=== PATIENT | male | born 1980 | race Caucasian/White ===

== ENCOUNTER 2019-02-22 13:06 | Observation (INO) ==
[2019-02-22] MEDS ORDERED: Ondansetron ODT 4 MG TAB.RAPDIS SL PRN (17:34)
[2019-02-22] MEDS ORDERED: Acetaminophen 325 MG TABLET PO PRN (17:34)
[2019-02-22] MEDS ORDERED: traMADol 50 MG TABLET PO PRN (17:34)
[2019-02-22] MEDS ORDERED: Naloxone 0.4 MG/ML INJ IVP PRN (17:34)
[2019-02-22] MEDS ORDERED: MOM Conc 10 ML UD.LIQ PO PRN (17:34)
[2019-02-22] MEDS ORDERED: Nitroglycerin 0.4 MG TAB.SUBL SL PRN (17:36)
--- NOTE | 2019-02-22 17:39 | Internal Med History&Physical ---
Date of Encounter: 02/22/19 Time of Encounter: 17:15 Internal Medicine - H&P: HPI Chief complaint: chest pain Admitted From: Hospital to Hospital Transfer Plans for Post Hospital Care: Home History of present illness: Mr. Del Angel is a 38 year old male with hx of HTN transferred from [facility] due to chest pain. Mr Del Angel has hx of HTN - recently had HCTZ added. He stated that this AM he was leaving for work and noted his BP was controlled but his heart rate was over 100 (104). He denied chest pain at that time. 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 He said he felt very sweaty and had chest heaviness. He felt very tired and weak and sat down. Symptoms did not resolve and he called EMS. He was transferred to [facility] ED. He was tachycardic on arrival - sinus tach on EKG. Labs and CTA were reportedly negative (not included in transfer packet). He was given one nitro with improvement in his symptoms. He has not had symptoms prior to this. Denies hx DM or CAD. Denies hx of HLD (though he is on lipitor). No recent illness - has been coughing daily but quit smoking 3 weeks ago. Admits family hx of CAD/MN in brother (5 MIs before age 50). Mother with DM. Past Med Surg Social Fam HX - Past Medical History Source: patient Medical history: GERD, hyperlipidemia, hypertension Psychiatric history: depression - Past Surgical History Additional surgical history: left knee scope - Social History Smoking Status: Former smoker Smokeless Tobacco Status: Yes (Hasn't used last few days) Alcohol use: none Drug use: none Occupational status: employed Current living situation: With Family Activity Level: Independent ambulation Recent Out of Country Travel Within the Last 8 Weeks: No Exposure or Possible Exposure to Illness During Travel: No - Family History Father Living Status: Age at : 63 Cause of : Pneumonia Hx Family Cardiac Disorders: Yes (2 "holes in heart") Hx Family Endocrine Disorder: No Mother Living Status: Age at : 53 Cause of : Complications from surgery Hx Family Cardiac Disorders: No Hx Family Endocrine Disorder: Yes (DM) Internal Medicine - H&P: Meds Ibuprofen [Motrin] 600 mg PO Q6HR PRN #30 tab 10/19/17 [Rx] Atorvastatin Calcium [Lipitor] 20 mg PO HS 02/22/19 [History] BuPROPion [Wellbutrin] 150 mg PO DAILY 02/22/19 [History] Buspirone HCl [Buspar] 7.5 mg PO BID 02/22/19 [History] Cyanocobalamin (Vitamin B-12) [Vitamin B-12] 1,000 mg PO DAILY 02/22/19 [History] Lisinopril [Zestril] 20 mg PO HS 02/22/19 [History] Montelukast [Singulair] 10 mg PO DAILY 02/22/19 [History] Omeprazole [PriLOSEC] 20 mg PO DAILY 02/22/19 [History] Ranitidine HCl [Acid Culinary Assistant] 150 mg PO HS 02/22/19 [History] hydroCHLOROthiazide [Hydrochlorothiazide] 12.5 mg PO DAILY 02/22/19 [History] Allergy/AdvReac Type Severity Reaction Status Date / Time Erythromycin Base AdvReac Numbness Verified 03/12/18 06:45 All Systems PM: A 10-system review of systems was performed and is negative for pertinent findings except as documented above in the HPI. - Constitutional Constitutional: excessive sweating, fatigue - EENT Eyes: no irritation, no seeing flashes Ears: no decreased hearing Nose, mouth and throat: no dry mouth, no sinus pain - Cardiovascular Cardiovascular ROS IM: chest pain, dyspnea, dyspnea on exertion (Quit smoking because he was more dyspneic at work.), no lightheadedness - Respiratory Respiratory: cough, dyspnea on exertion - Gastrointestinal Gastrointestinal: no abdominal pain, no melena, no vomiting - Genitourinary Genitourinary ROS male: no urinary hesitancy, no urinary urgency - Integumentary Integumentary IM: no erythema, no rash - Neurological Neurological ROS: no dizziness, no vertigo - Psychiatric Psychiatric: no suicidal ideation - Endocrine Endocrine IM: no excessive sweating - Hematologic/Lymphatic Hematologic/Lymphatic: no easy bleeding - Allergic/Immunologic Allergic/Immunologic: no throat swelling - Constitutional General appearance: Present: A&O X 3, answers questions appropriately Exam: See below - Head Head exam: Present: normocephalic - Eye Eye exam: Present: EOMI, conjuntiva pink - ENT ENT exam: Present: normal exam - Neck Neck exam general surgery: Present: normal inspection. Absent: thyromegaly - Respiratory Respiratory exam: Present: CTAB. Absent: rales, rhonchi, wheezes - Cardiovascular Cardiovascular exam: Present: RRR. Absent: tachycardia - GI/Abdominal GI/Abdominal exam: Present: soft. Absent: tenderness - Extremities Exam Extremities exam: Present: warm. Absent: tenderness - Neurological Exam Neurological exam: Present: alert, oriented X3 - Skin Skin exam: Present: dry, warm. Absent: rash - Assessment and Plan (1) Chest pain Current Visit: Yes Status: Suspected Assessment and plan: Mr Del Angel presented to ED with complaints of chest heaviness with dyspnea and diaphoresis. He was tachycardic as well. Work up in [place] reportedly with neg trop and neg CTA of chest. Place in observation, serial troponin, labs repeated here. NPO midnight - probable stress in AM. Qualifiers: Chest pain type: chest pain due to myocardial ischemia Ischemic chest pain type: unstable angina pectoris Qualified Code(s): I20.0 - Unstable angina (2) HTN (hypertension) Current Visit: Yes Status: Chronic Assessment and plan: Pt recently started on HCTZ in addition to Lisinopril. Continue both for now. May need beta ana laura. Qualifiers: Hypertension type: essential hypertension Qualified Code(s): I10 - Essential (primary) hypertension (3) HLD (hyperlipidemia) Current Visit: Yes Status: Suspected Assessment and plan: Pt denies hx of HLD but takes Lipitor. Check lab in AM. Qualifiers: Hyperlipidemia type: mixed hyperlipidemia Qualified Code(s): E78.2 - Mixed hyperlipidemia (4) Tobacco abuse Current Visit: Yes Status: Resolved Assessment and plan: Quit 3 weeks ago. - Time Spent With Patient Total time spent is greater than 50% in coordination of care (as documented) at patient's floor/unit and/or counseling patient:
[2019-02-22 18:38] LABS: Basophils # 0.1 K/mcL (0.0-0.2); Eosinophils # 0.2 K/mcL (0.0-0.6); Hematocrit 46.5 % (37.5-50.1); Hemoglobin 16.4 g/dL (12.9-16.9); Immature Granulocytes % 0.6 % (0-4); Lymphocytes # 2.3 K/mcL (0.6-4.6); Lymphocytes % 22.8 %; Mean Corpuscular HGB Conc 35.3 g/dL (31.6-35.5); Mean Corpuscular Hemoglobin 31.6 pg (28.0-33.3); Mean Corpuscular Volume 89.6 fL (83.0-100.0); Mean Platelet Volume 9.7 fL (9.4-12.4); Monocytes % 9.7 %; Neutrophils # 6.5 K/mcL (1.6-8.9); Platelet Count 290 K/mcL (140-400); Red Blood Count 5.19 M/mcL (4.19-5.50); Red Cell Distribution Width 12.2 % (11.5-14.5); Segmented Neutrophils % 63.9 %; White Blood Count 10.1 K/mcL (4.3-11.1)
[2019-02-22 19:01] LABS: Alanine Aminotransferase 27 Units/L (7-52); Albumin 4.2 g/dL (3.5-5.7); Albumin/Globulin Ratio 1.6 (1.1-2.2); Alkaline Phosphatase 131 Units/L (34-104); Aspartate Amino Transferase 16 Units/L (13-39); BUN/Creatinine Ratio 11 (6-26); Bilirubin,Total 0.6 mg/dL (0.3-1.0); Blood Urea Nitrogen 11 mg/dL (6-20); Calcium 9.5 mg/dL (8.6-10.3); Carbon Dioxide 26 mEq/L (23-29); Chloride 102 mEq/L (98-107); Globulin 2.7 g/dL (2.4-3.5); Glucose 125 mg/dL (70-105); Osmolality,Calculated 287 (280-300); Potassium 3.4 mEq/L (3.5-5.1); Sodium 138 mEq/L (136-145); Total Protein 6.9 g/dL (6.4-8.9); Troponin I < 0.03 ng/mL (< 0.04); eGFR For African Americans > 60 (> 60); eGFR For Non-African Americans > 60 (> 60)
[2019-02-22] MEDS: Lisinopril 20 MG TABLET PO SCH (20:03)
[2019-02-22] MEDS: Famotidine 20 MG TABLET PO SCH (20:04)
[2019-02-22] MEDS ORDERED: Perflutren Lipid Microsphere 1.3 ML in 0.9 % Sodium Chloride 8.7 ML IVP ONE (20:06)
[2019-02-23 06:15] LABS: Hematocrit 46.8 % (37.5-50.1); Hemoglobin 16.4 g/dL (12.9-16.9); Mean Corpuscular Volume 91.2 fL (83.0-100.0); Mean Platelet Volume 9.8 fL (9.4-12.4); Platelet Count 284 K/mcL (140-400); Red Blood Count 5.13 M/mcL (4.19-5.50); Red Cell Distribution Width 12.1 % (11.5-14.5); White Blood Count 9.1 K/mcL (4.3-11.1)
[2019-02-23 06:22] LABS: Prothrombin Time 11.5 Seconds (9.4-12.1)
[2019-02-23 06:32] LABS: BUN/Creatinine Ratio 15 (6-26); Blood Urea Nitrogen 14 mg/dL (6-20); Calcium 9.3 mg/dL (8.6-10.3); Carbon Dioxide 29 mEq/L (23-29); Chloride 100 mEq/L (98-107); Chol/HDL Ratio 5.1 (0-4.9); Cholesterol 122 mg/dL (< 200); Glucose 120 mg/dL (70-105); HDL Cholesterol 24 mg/dL (40-59); LDL Cholesterol,Calculated 79 mg/dL (0-99); Osmolality,Calculated 288 (280-300); Potassium 3.7 mEq/L (3.5-5.1); Sodium 138 mEq/L (136-145); Triglycerides 96 mg/dL (< 150); eGFR For African Americans > 60 (> 60); eGFR For Non-African Americans > 60 (> 60)
--- NOTE | 2019-02-23 08:49 | Internal Med Progress Note ---
<Antonio Sorto - Last Filed: 02/23/19 13:38> Hospitalist Progress Note - Encounter Date of Encounter: 02/23/19 - Exam Vitals: Temp Pulse Resp BP Pulse Ox 97.6 F 95 16 122/86 92 02/23/19 11:54 02/23/19 11:54 02/23/19 11:54 02/23/19 11:54 02/23/19 11:54 - Assessment and Plan (1) Chest pain Current Visit: Yes Status: Suspected (2) HTN (hypertension) Current Visit: Yes Status: Chronic (3) HLD (hyperlipidemia) Current Visit: Yes Status: Suspected (4) Tobacco abuse Current Visit: Yes Status: Resolved - Time Spent with Patient Total time spent is greater than 50% in coordination of care (as documented) at patient's floor/unit and/or counseling patient: Internal Medicine: Result - Labs CBC & Chem 7: 02/23/19 05:40 02/23/19 05:40 Labs: Short CBC 02/22/19 02/23/19 Range/Units 18:21 05:40 WBC 10.1 9.1 (4.3-11.1) K/mcL Hgb 16.4 16.4 (12.9-16.9) g/dL Hct 46.5 46.8 (37.5-50.1) % Plt Count 290 284 (140-400) K/mcL Neutrophils # 6.5 (1.6-8.9) K/mcL BMP 02/22/19 02/23/19 18:01 05:40 Sodium 138 138 Potassium 3.4 L 3.7 Chloride 102 100 Carbon Dioxide 26 29 BUN 11 14 Creatinine 0.96 0.91 Glucose 125 H 120 H Calcium 9.5 9.3 Cardiac Enzymes 02/22/19 02/22/19 02/23/19 Range/Units 18:01 23:37 05:40 Troponin I < 0.03 < 0.03 < 0.03 (< 0.04) ng/mL Liver Function 02/22/19 Range/Units 18:01 Total Bilirubin 0.6 (0.3-1.0) mg/dL AST 16 (13-39) Units/L ALT 27 (7-52) Units/L Alkaline Phosphatase 131 H (34-104) Units/L Albumin 4.2 (3.5-5.7) g/dL - ABG Interpretation ABG results: PT/INR, D-dimer PT 11.5 Seconds (9.4-12.1) 02/23/19 05:40 - Impressions Impressions Echocardiogram 02/22/19 17:36 Impressions: LVEF 60-65%. Normal LV chamber size, wall thickness and function. Mild left ventricular diastolic dysfunction. Normal right ventricular structure and function. Unable to estimate RVSP due to lack of TR jet. No significant valvular dysfunction. Left Ventricular Wall Motion: Rest Echo Findings All wall segments showed normal motion. Findings: Study Quality * Technically sub-optimal due to poor echocardiographic windows. ECG Findings * Normal sinus rhythm. Left Ventricle * LVEF 60-65%. * Normal LV chamber size, wall thickness and function. * Mild left ventricular diastolic dysfunction. Right Ventricle * Normal right ventricular structure and function. Left Atrium * Normal left atrial size. Right Atrium * Normal right atrial size. Interatrial Septum * Interatrial septum not well evaluated. Aortic Valve * Aortic valve not well visualized. * No aortic regurgitation. * No aortic stenosis. Mitral Valve * Normal mitral valve structure and function. * No mitral stenosis. * No mitral regurgitation. Tricuspid Valve * Normal tricuspid valve structure and function. * No tricuspid regurgitation. * Unable to estimate RVSP due to lack of TR jet. Pulmonic Valve * Pulmonic valve is not well visualized. * No pulmonic regurgitation. Aorta * Normally sized aortic root. Pericardium * The pericardium appears normal. IVC * The IVC is not well evaluated. Pulmonary Artery * Pulmonary artery not well visualized. Consult Discharge Plan - Plan Referrals: NONE,PCP [Primary Care Provider] - - Attending Attestation I examined this patient and my medical decision-making was reviewed with the Resident Physician on 02/23/19. I agree with the documented findings, disposition and treatment plan as described except to the extent set forth below. Mr Del Angel is currently in observation for chest pain. He is a 2 day stress. He remains moderate risk at this time. Mr Del Angel is feeling OK. No fever or chills. No CP. Exam as above. Plan - await stress test results tomorrow for further discharge planning. <Paul Almazan - Last Filed: 02/23/19 18:44> Hospitalist Progress Note - Encounter Date of Encounter: 02/23/19 Time of Encounter: 08:49 - Subjective Interval History: The patient was seen and examined at bedside this morning. He is currently resting comfortably in no acute distress. Vitals are stable. He denies any current chest pain. He does note, that his symptoms came on yesterday while working. States that he began feeling heaviness in the center of his chest, diaphoresis, weakness, fatigue. EMS was called, and patient was noted to be in A. fib on the way to the hospital. Patient was transferred from [facility] to [facility] for further workup. Plan for stress test today. - Exam Vitals: Temp Pulse Resp BP Pulse Ox 97.7 F 93 16 131/86 92 02/23/19 07:13 02/23/19 07:13 02/23/19 07:13 02/23/19 07:13 02/23/19 07:13 Exam: GEN: Pleasant 38-year-old male resting comfortably at bedside. Accompanied by . Vitals stable. No acute distress. AAOx3 HEENT: Atraumatic, Normocephalic, PERRLA, EOMI NECK: Supple, no lymphadenopathy, no JVD CARDIAC: RRR, s1 and s2 present, no murmurs, rubs, gallops PULM: CTAB, not in respiratory distress, no wheezes, rales, crackles, rhonchi ABD: Soft, non-tender, non-distended, no guarding or rebound tenderness. Bowel sounds present EXT: No peripheral edema. No calf tenderness, cyanosis, clubbing NEURO: CN 2-12 grossly intact. No focal neurologic deficits. Follows commands PSYCH: Appropriate mood and affect - Assessment and Plan (1) Chest pain Current Visit: Yes Status: Suspected Assessment and Plan: This is a 38-year-old male with past medical history of hypertension, hyperlipidemia, GERD who initially presented as a transfer from [facility] due to chest pain. - Noted elevated heart rates on his way to work yesterday. At work, was diaphoretic, had chest heaviness, weakness. Symptoms do not resolve so he called EMS. - EMS with reported history of atrial fibrillation on the way to the hospital. - EKG at [facility]: Sinus tachycardia - Troponins were negative - Additionally noted a negative CTA chest - Patient was given nitroglycerin at [facility] and symptoms improved - History of hypertension currently treated with hydrochlorothiazide and lisinopril - Additionally is on Lipitor - Family history of CAD/OH in his brother - Echocardiogram (02/22/19): LVEF equals 60-65%. Normal left ventricle. Mild left ventricular diastolic dysfunction. Normal right ventricle. No significant valvular dysfunction. - Repeat troponins negative PLAN: Patient presents with what seems to be exertional angina. No previous history of coronary artery disease. History of hypertension. Additional suspicious reported history of atrial fibrillation by EMS. No documented atrial fibrillation on EKG. No irregular heart rhythm on physical exam. - Follow up results of stress test - 2 day stress test - Continue on telemetry - Continue to monitor for chest pain - Nitroglycerin as needed - Pain and nausea control as needed - Continue with home hypertension medications - CHADS-VASc = 1; may consider daily aspirin on discharge (2) HTN (hypertension) Current Visit: Yes Status: Chronic Assessment and Plan: Hypertension controlled thus far PLAN: - Continue to monitor blood pressures - Continue home hypertension medications (3) HLD (hyperlipidemia) Current Visit: Yes Status: Suspected Assessment and Plan: Lipid Panel: - Triglycerides = 96 - Total cholesterol = 122 - LDL = 79 - HDL = 24 PLAN: - Continue statin (4) Tobacco abuse Current Visit: Yes Status: Resolved Assessment and Plan: Tobacco use report - Recently quit 3 weeks ago (5) Obstructive sleep apnea Current Visit: Yes Status: Acute Assessment and Plan: Patient presents for further evaluation of chest pain. - Per history, patient has been reporting daytime sleepiness. Also notes snoring at night. - BMI = 38.2 - Questionable history of atrial fibrillation by EMS on way to [facility] emergency room. - Patient is a former smoker - Additionally noted to have hypertension necessitating 2 different hypertension medications - Male PLAN: Above history suspicious for obstructive sleep apnea. - Consider outpatient sleep study (6) DVT prophylaxis Current Visit: Yes Status: Acute Assessment and Plan: PLAN: - Heparin SQ BID DVT Prophylaxis: Heparin SQ BID - Time Spent with Patient Total time spent is greater than 50% in coordination of care (as documented) at patient's floor/unit and/or counseling patient: less than 15 minutes Plan of Care Discussed with: patient Internal Medicine: Result - Labs CBC & Chem 7: 02/23/19 05:40 02/23/19 05:40 Labs: Short CBC 02/22/19 02/23/19 Range/Units 18:21 05:40 WBC 10.1 9.1 (4.3-11.1) K/mcL Hgb 16.4 16.4 (12.9-16.9) g/dL Hct 46.5 46.8 (37.5-50.1) % Plt Count 290 284 (140-400) K/mcL Neutrophils # 6.5 (1.6-8.9) K/mcL BMP 02/22/19 02/23/19 18:01 05:40 Sodium 138 138 Potassium 3.4 L 3.7 Chloride 102 100 Carbon Dioxide 26 29 BUN 11 14 Creatinine 0.96 0.91 Glucose 125 H 120 H Calcium 9.5 9.3 Cardiac Enzymes 02/22/19 02/22/19 02/23/19 Range/Units 18:01 23:37 05:40 Troponin I < 0.03 < 0.03 < 0.03 (< 0.04) ng/mL Liver Function 02/22/19 Range/Units 18:01 Total Bilirubin 0.6 (0.3-1.0) mg/dL AST 16 (13-39) Units/L ALT 27 (7-52) Units/L Alkaline Phosphatase 131 H (34-104) Units/L Albumin 4.2 (3.5-5.7) g/dL - ABG Interpretation ABG results: PT/INR, D-dimer PT 11.5 Seconds (9.4-12.1) 02/23/19 05:40 <Antonio Sorto - Last Filed: 02/23/19 13:38> (1) Chest pain Qualifiers: Chest pain type: chest pain due to myocardial ischemia Ischemic chest pain type: unstable angina pectoris Qualified Code(s): I20.0 - Unstable angina (2) HTN (hypertension) Qualifiers: Hypertension type: essential hypertension Qualified Code(s): I10 - Essential (primary) hypertension (3) HLD (hyperlipidemia) Qualifiers: Hyperlipidemia type: mixed hyperlipidemia Qualified Code(s): E78.2 - Mixed hyperlipidemia <Paul Almazan - Last Filed: 02/23/19 18:44> (1) Chest pain Qualifiers: Chest pain type: chest pain due to myocardial ischemia Ischemic chest pain type: unstable angina pectoris Qualified Code(s): I20.0 - Unstable angina (2) HTN (hypertension) Qualifiers: Hypertension type: essential hypertension Qualified Code(s): I10 - Essential (primary) hypertension (3) HLD (hyperlipidemia) Qualifiers: Hyperlipidemia type: mixed hyperlipidemia Qualified Code(s): E78.2 - Mixed hyperlipidemia
[2019-02-23] MEDS ORDERED: Regadenoson 0.4 MG/5 ML SYRINGE IVP ONE (10:02)
[2019-02-23] MEDS: Aspirin 81 MG TAB.CHEW PO SCH (12:06)
[2019-02-23] MEDS: hydroCHLOROthiazide 25 MG TABLET PO SCH (12:06)
[2019-02-23] MEDS: Lisinopril 20 MG TABLET PO SCH (20:01)
[2019-02-23] MEDS: Famotidine 20 MG TABLET PO SCH (20:01)
[2019-02-23 20:31] LABS: Estimated Average Glucose 100 mg/dl
[2019-02-24 05:11] LABS: BUN/Creatinine Ratio 16 (6-26); Blood Urea Nitrogen 14 mg/dL (6-20); Calcium 9.1 mg/dL (8.6-10.3); Carbon Dioxide 27 mEq/L (23-29); Chloride 102 mEq/L (98-107); Glucose 109 mg/dL (70-105); Osmolality,Calculated 287 (280-300); Potassium 3.7 mEq/L (3.5-5.1); Sodium 138 mEq/L (136-145); eGFR For African Americans > 60 (> 60); eGFR For Non-African Americans > 60 (> 60)
[2019-02-24] MEDS ORDERED: *HR* Heparin 5,000 UNIT/ML VIAL SQ SCH (06:00)
[2019-02-24 06:36] VITALS: BP 125/81
[2019-02-24] MEDS: hydroCHLOROthiazide 25 MG TABLET PO SCH (08:23)
[2019-02-24] MEDS: Aspirin 81 MG TAB.CHEW PO SCH (08:23)
--- NOTE | 2019-02-24 10:44 | Discharge Summary ---
Orders not resulted at time of discharge: Pending orders 02/22/19 17:37 NM roberto perf SPECT multi [NM] Routine Date of Encounter: 02/24/19 Time of Encounter: 10:42 - Discharge Diagnosis (1) Chest pain Priority: Primary Status: Resolved Qualifiers: Chest pain type: chest pain due to myocardial ischemia Ischemic chest pain type: unstable angina pectoris Qualified Code(s): I20.0 - Unstable angina (2) HTN (hypertension) Priority: Secondary Status: Chronic Qualifiers: Hypertension type: essential hypertension Qualified Code(s): I10 - Essential (primary) hypertension (3) HLD (hyperlipidemia) Priority: Secondary Status: Suspected Qualifiers: Hyperlipidemia type: mixed hyperlipidemia Qualified Code(s): E78.2 - Mixed hyperlipidemia (4) Tobacco abuse Priority: Secondary Status: Resolved Hospital course: Mr. DelA ngel is a 38 year old male with history of hypertension who presented with chest heaviness. Patient was noted to have sinus tach on EKG with no ischemic changes. Nitroglycerin did improve his pain. Troponin 3 was negative. Patient underwent 2-D cardiac stress testing that was negative for any ischemia or infarct. Patient was chest pain-free at the time of discharge. Patient will be discharged home in stable condition. Discharge discussed with: patient, family - Time Spent with Patient Total time spent providing and/or coordinating discharge services: - Discharge Medications Prescriptions: Continued Atorvastatin Calcium [Lipitor] 20 mg PO HS Lisinopril [Zestril] 20 mg PO HS Omeprazole [PriLOSEC] 20 mg PO DAILY Buspirone HCl [Buspar] 7.5 mg PO BID Montelukast [Singulair] 10 mg PO DAILY Cyanocobalamin (Vitamin B-12) [Vitamin B-12] 1,000 mg PO DAILY Ranitidine HCl [Acid Mica Inspector] 150 mg PO HS hydroCHLOROthiazide [Hydrochlorothiazide] 12.5 mg PO DAILY BuPROPion XL (24 HR) [Wellbutrin Xl] 150 mg PO DAILY Ibuprofen [Motrin] 600 mg PO DAILY PRN PRN Reason: Pain Home Medications: Atorvastatin Calcium [Lipitor] 20 mg PO HS 02/22/19 [History] BuPROPion XL (24 HR) [Wellbutrin Xl] 150 mg PO DAILY 02/22/19 [History] Buspirone HCl [Buspar] 7.5 mg PO BID 02/22/19 [History] Cyanocobalamin (Vitamin B-12) [Vitamin B-12] 1,000 mg PO DAILY 02/22/19 [History] Ibuprofen [Motrin] 600 mg PO DAILY PRN 02/22/19 [History] Lisinopril [Zestril] 20 mg PO HS 02/22/19 [History] Montelukast [Singulair] 10 mg PO DAILY 02/22/19 [History] Omeprazole [PriLOSEC] 20 mg PO DAILY 02/22/19 [History] Ranitidine HCl [Acid Mica Inspector] 150 mg PO HS 02/22/19 [History] hydroCHLOROthiazide [Hydrochlorothiazide] 12.5 mg PO DAILY 02/22/19 [History] Allergies/Adverse Reactions: Allergy/AdvReac Type Severity Reaction Status Date / Time Erythromycin Base AdvReac Numbness Verified 02/22/19 23:32 Date of admission: 02/22/19 16:40 Primary care physician: PCP NONE Discharging clinician: Frank Carr - Constitutional Vitals: Temp Pulse Resp BP Pulse Ox 97.8 F 92 18 125/81 94 02/24/19 06:36 02/24/19 06:36 02/24/19 06:36 02/24/19 06:36 02/24/19 06:36 General appearance: Present: A&O X 3, answers questions appropriately Exam: . - Cardiovascular Cardiovascular exam: Present: RRR. Absent: gallop, rubs, systolic murmur - Patient Status Disposition: Home, Self-Care Condition: Good Functional capacity at discharge: independent ambulation Overall status at discharge: patient is progressing back to baseline - Discharge Instructions Follow Up With: NONE,PCP [Primary Care Provider] - Ro Deleon, [employer] OPERATOR [Advanced Practice Nurse] - (1 week) Additional Instructions: Please follow-up with your PCP within one week. Please resume your home medications. Please return for any new or worsening symptoms. - Diet and Activity Activity: increase activity as tolerated Diet: advance to your usual diet
== END 2019-02-24 12:47 | disposition home or self-care (01) ==
LOC: 3BNU → SUATTDRO 16:40
PROVIDERS: ADMIT Internal Medicine; ATTEND Internal Medicine